=== PATIENT | male | born 1980 | race African-American/Black ===

== ENCOUNTER 2021-05-08 21:49 | Emergency (ER) | payer SELFPAY ==
[~2021-05-08] VITALS: Ht 172.7 cm; Wt 77.3 kg
[2021-05-08 22:20] VITALS: TEMP 98.1
[2021-05-09 01:08] VITALS: BP 154/88; PULSE 80
== END 2021-05-09 01:08 | disposition home or self-care (01) ==
LOC: COL.ER 21:49
DX: S63.253A Unspecified dislocation of left middle finger, initial encounter (principal); X58.XXXA Exposure to other specified factors, initial encounter; Y93.61 Activity, american tackle football

== ENCOUNTER 2021-08-27 23:11 | Emergency (ER) | payer SELFPAY ==
[~2021-08-27] VITALS: Ht 170.2 cm; Wt 75.0 kg
[2021-08-27 23:13] VITALS: TEMP 97.9
[2021-08-27 23:59] LABS: BASO % 0.7 % (0.0-2.0); EOS # 0.1 K/mm3 (0.0-0.7); EOS % 2.1 % (0.0-4.0); GRAN # 3.3 K/mm3 (1.4-6.5); GRAN % 57.2 % (42.2-75.2); HEMATOCRIT 39.6 % (42.0-52.0); LYMPH # 1.8 K/mm3 (1.2-3.4); MEAN CELL VOLUME 88 fl (80.0-100.0); MEAN CORPUSCULAR HEMOGLOBIN 31 pg (27-31); MEAN CORPUSCULAR HGB CONC 35 g/dl (33.0-37.0); MONO # 0.5 K/mm3 (0.1-0.6); MONO % 8.8 % (1.7-9.3); PLATELET COUNT 180 K/mm3 (130-400); RED BLOOD COUNT 4.51 M/mm3 (4.20-5.60); REDCELL DISTRIBUTION WIDTH-CV 13.2 % (11.5-14.5)
[2021-08-28 00:14] LABS: ALANINE AMINOTRANSFERASE 8 U/L (0-55); ALBUMIN 4.1 gm/dL (3.5-5.0); ALKALINE PHOSPHATASE 80 U/L (40-150); ANION GAP 13 mmol/L (7-16); AST,SGOT 16 U/L (5-34); BILIRUBIN,TOTAL 0.6 mg/dL (0.2-1.2); BLOOD UREA NITROGEN 10 mg/dL (9-21); CALCIUM 9.7 mg/dL (8.4-10.2); CARBON DIOXIDE 25 mmol/L (22-29); CHLORIDE 103 mmol/L (98-107); CREATININE, serum 1.27 mg/dL (0.72-1.25); GLUCOSE 80 mg/dL (70-99); POTASSIUM 3.6 mmol/L (3.5-4.5); SODIUM 141 mmol/L (136-145); TOTAL PROTEIN 7.5 gm/dL (6.2-8.1)
[2021-08-28 00:26] LABS: TROPONIN-I < 0.010 ng/mL (0.00-0.033)
[2021-08-28 01:05] VITALS: BP 124/88; PULSE 70
== END 2021-08-28 01:07 | disposition home or self-care (01) ==
LOC: COL.ER 23:11
PROVIDERS: Emergency Medicine
DX: R07.89 Other chest pain (principal)
CPT/HCPCS: J1885; J7030

== ENCOUNTER 2023-10-21 15:54 | Emergency (ER) | payer OTHER ==
[~2023-10-21] VITALS: Ht 172.7 cm; Wt 77.3 kg
[2023-10-21 18:03] VITALS: BP 129/80; PULSE 77; TEMP 98
== END 2023-10-21 18:05 | disposition home or self-care (01) ==
LOC: COL.ER 15:54
DX: S61.411A Laceration without foreign body of right hand, initial encounter (principal); F17.200 Nicotine dependence, unspecified, uncomplicated; W26.8XXA Contact with other sharp object(s), not elsewhere classified, initial encounter; W22.8XXA Striking against or struck by other objects, initial encounter